=== PATIENT | male | born 1980 | race African-American/Black ===

== ENCOUNTER → 2017-10-30 | Outpatient (REF) | payer OTHER ==
[2017-10-30 14:49] LABS: URIC ACID 9.5 MG/DL (3.5-7.2)
== END ==
LOC: M LAB REF 13:48
DX: M25.50 Pain in unspecified joint (principal)

== ENCOUNTER 2018-03-09 08:21 | Emergency (ER) | payer OTHER | END 2018-03-09 10:18 | disposition home or self-care (01) | LOC: M ED 08:21 | DX: M19.071 Primary osteoarthritis, right ankle and foot (principal); Z87.81 Personal history of (healed) traumatic fracture; M10.9 Gout, unspecified | CPT/HCPCS: 73610 ==

== ENCOUNTER → 2018-07-16 | Outpatient (REF) | payer OTHER ==
[2018-07-16 22:32] LABS: URIC ACID 8.8 MG/DL (3.5-7.2)
== END ==
LOC: M LAB REF 21:23
DX: M25.50 Pain in unspecified joint (principal)

== ENCOUNTER 2018-11-28 23:27 | Emergency (ER) | payer OTHER, SELFPAY ==
[~2018-11-28] VITALS: Ht 182.9 cm; Wt 159.1 kg
[~2018-11-28 23:27] MED LIST: COLC1TAB13 PO; MEDR4PAK PO
[2018-11-29] MEDS ORDERED: COLCHICINE 0.6 MG TAB PO ONE ×2 (00:30)
[2018-11-29 00:58] VITALS: BP 174/103
== END 2018-11-29 01:00 | disposition home or self-care (01) ==
LOC: M ED 23:27
DX: M10.071 Idiopathic gout, right ankle and foot (principal)

== ENCOUNTER → 2019-06-28 | Outpatient (CLI) | payer BC ==
--- NOTE | 2019-06-28 18:36 | REP ---
Clinical: Nontraumatic heel pain Technique: AP, lateral, bilateral oblique views left foot . Findings: The osseous structures and joint spaces are intact and normal. There is no evidence for acute fracture or dislocation. Surrounding soft tissues are unremarkable. No subcutaneous emphysema or radiodense foreign body. Impression: No obvious abnormality by radiographic evaluation. Electronically Signed by Henrry Balderrama MD 06/28/2019 06:27 P
== END ==
LOC: M RAD 17:23
PROVIDERS: ATTEND Physician Assistant Medical
DX: M79.672 Pain in left foot (principal)

== ENCOUNTER → 2019-12-29 | Outpatient (REF) | payer BC ==
[2019-12-29 14:05] LABS: SOURCE, BODY FLUID OTHER; SYNOVIAL FLUID COLOR YELLOW (YELLOW)
[2019-12-29 14:06] LABS: CRYSTALS, BODY FLUID CA PYROPHOSPHATE (NONE SEEN); SOURCE, BODY FLUID CRYSTALS OTHER
[2019-12-29 14:07] LABS: BODY FLUID RHEUMATOID SCREEN NEGATIVE (NEGATIVE)
[2019-12-29 14:08] LABS: MUCIN CLOT TEST 4+ (4+)
[2019-12-29 14:18] LABS: SOURCE, BODY FLUID GLUCOSE OTHER
== END ==
LOC: M LAB REF 13:29
PROVIDERS: ATTEND Orthopaedic Surgery Sports Medicine
DX: Z01.89 Encounter for other specified special examinations (principal)

== ENCOUNTER → 2019-12-29 | Outpatient (CLI) | payer BC ==
--- NOTE | 2019-12-29 15:06 | REP ---
DEEP VENOUS ULTRASONOGRAPHY RIGHT THIGH, RULE OUT DVT: REASON: Pain and swelling. TECHNIQUE: Multiple ultrasonographic images of the deep venous structures of the thigh were obtained from the common femoral vein to the popliteal vein along with Doppler interrogation and color flow Doppler images. FINDINGS: There is no abnormal echogenic material seen within any of the visualized deep venous structures that would suggest acute thrombosis. Coaptation is unremarkable throughout. Doppler interrogation shows an expected response to respiratory variability and augmentation. The color flow images show what appears to be a normal vascular pattern throughout. IMPRESSION: There is no ultrasonographic evidence of deep venous thrombosis involving any of the visualized deep venous structures of the right thigh, as described above. Electronically Signed by Yfn Sorto DO 12/29/2019 03:06 P
== END ==
LOC: M RAD 13:30
PROVIDERS: ATTEND Orthopaedic Surgery Sports Medicine
DX: M25.561 Pain in right knee (principal)

== ENCOUNTER 2022-03-01 07:14 | Emergency (ER) | payer BC ==
[~2022-03-01] VITALS: Ht 182.9 cm; Wt 157.0 kg
[~2022-03-01 07:14] MED LIST changes: +COLC0.6T47 PO; -COLC1TAB13 PO
[2022-03-01] MEDS ORDERED: SULF1TAB23 PO (07:54)
[2022-03-01] MEDS ORDERED: BACTRIM 160MG/800MG DS TAB PO ONE (07:55)
[2022-03-01 08:01] VITALS: BP 150/93
== END 2022-03-01 08:05 | disposition home or self-care (01) ==
LOC: M ED 07:14
DX: L03.313 Cellulitis of chest wall (principal); J45.909 Unspecified asthma, uncomplicated; M10.9 Gout, unspecified

== ENCOUNTER 2023-07-30 07:13 | Emergency (ER) | payer BC ==
[~2023-07-30] VITALS: Ht 182.9 cm; Wt 156.8 kg
[~2023-07-30 07:13] MED LIST changes: +SULF1TAB23 PO
[2023-07-30] MEDS ORDERED: IBUP200C25 PO (07:24)
[2023-07-30] MEDS ORDERED: ACETAMINOPHEN 325 MG TAB PO ONE (07:35)
[2023-07-30 08:38] VITALS: BP 161/80; TEMP 97.6; O2SAT 96
== END 2023-07-30 08:58 | disposition home or self-care (01) ==
LOC: M ED 07:13
DX: S80.02XA Contusion of left knee, initial encounter (principal); R03.0 Elevated blood-pressure reading, without diagnosis of hypertension